=== PATIENT | female | born 1965 | race Caucasian/White ===

== ENCOUNTER 2020-12-22 21:08 | Emergency (ER) | payer OTHER ==
[2020-12-22 22:12] LABS: BASOPHIL 0.4 % (0-2); EOSINOPHIL 1.3 % (0-5); HGB 14.1 g/dl (12.5-16.0); LYMPHOCYTE 17.5 % (15-48); MCH 28.5 pg (25.0-31.0); MCHC 33.6 g/dL (32.0-36.0); MCV 84.8 fL (78.0-100.0); MONOCYTE 5.1 % (0-12); MPV 10.7 fL (6.0-9.5); NEUTROPHIL 74.9 % (41-80); NRBC 0; PLT 308 K/uL (150-400); RBC 4.95 M/uL (4.20-5.40); RDW 13.3 % (11.5-14.0); WBC 15.8 K/uL (4.0-10.5)
[2020-12-22 22:32] LABS: ALBUMIN 2.9 g/dL (3.4-5.0); BILIRUBIN - TOTAL 0.2 mg/dL (0.2-1.0); BUN/CREAT RATIO (CALC) 12.3 RATIO; CREATININE 0.65 mg/dL (0.51-0.95); GLOBULIN (CALCULATION) 5.2 g/dL; POTASSIUM 3.7 mmol/L (3.5-5.1); TOTAL PROTEIN 8.1 g/dL (6.4-8.2)
[2020-12-22 22:42] LABS: LACTIC ACID 1.4 mmol/L (0.4-1.9)
[2020-12-23] MEDS ORDERED: ONDANSETRON ODT4 MG SL (01:00)
[2020-12-23] MEDS ORDERED: PEPCID AC20 MG PO (01:00)
[2020-12-23] MEDS ORDERED: NORCO 5-325 TA1 EACH PO (01:00)
== END 2020-12-23 01:15 | disposition home or self-care (01) ==
LOC: FER 21:08
PROVIDERS: Emergency Medicine Emergency Medical Services
DX: K85.00 Idiopathic acute pancreatitis without necrosis or infection (principal); F17.200 Nicotine dependence, unspecified, uncomplicated; Z90.49 Acquired absence of other specified parts of digestive tract; Z88.2 Allergy status to sulfonamides
CPT/HCPCS: 36415; 71275; 80053; 83605; 83690; 84484; 85025; 85379; 93005; J1170; J1885; J2405; J2800; J7030; J7050; Q9967

== ENCOUNTER 2020-12-28 14:10 | Inpatient (IN) | payer OTHER ==
[~2020-12-28] VITALS: Ht 165.1 cm; Wt 113.1 kg
[~2020-12-28 14:10] MED LIST: NORCO 5-325 TA1 EACH PO; ONDANSETRON ODT4 MG SL; PEPCID AC20 MG PO
[2020-12-28 15:28] LABS: BASOPHIL 0.3 % (0-2); EOSINOPHIL 1.1 % (0-5); HCT 43.8 % (37.0-47.0); LYMPHOCYTE 11.7 % (15-48); MCV 87.6 fL (78.0-100.0); MONOCYTE 4.2 % (0-12); NEUTROPHIL 82.1 % (41-80); NRBC 0; PLT 354 K/uL (150-400); RDW 14.1 % (11.5-14.0); WBC 18.4 K/uL (4.0-10.5)
[2020-12-28 15:39] LABS: ALBUMIN 3.1 g/dL (3.4-5.0); BILIRUBIN - TOTAL 0.3 mg/dL (0.2-1.0); BUN/CREAT RATIO (CALC) 9.2 RATIO; CREATININE 0.76 mg/dL (0.51-0.95); TOTAL PROTEIN 9.1 g/dL (6.4-8.2)
[2020-12-28 17:32] LABS: LACTIC ACID 0.8 mmol/L (0.4-1.9)
[2020-12-28 17:50] LABS: BILIRUBIN NEGATIVE (NEGATIVE); BLOOD NEGATIVE Ery/uL (NEGATIVE); CLARITY CLEAR (CLEAR); COLOR YELLOW (YELLOW); GLUCOSE (U) NORMAL (NORMAL); LEUKOCYTES NEGATIVE Leu/uL (NEGATIVE); NITRITE NEGATIVE (NEGATIVE); PROTEIN NEGATIVE (NEGATIVE); SPECIFIC GRAVITY 1.015 (1.001-1.030); UROBILINOGEN 0.2 mg/dL (0.2-1.0); pH 7.5 (5.0-9.0)
[2020-12-29 04:05] LABS: BASOPHIL 0.2 % (0-2); EOSINOPHIL 0.8 % (0-5); HCT 41.1 % (37.0-47.0); HGB 12.9 g/dl (12.5-16.0); LYMPHOCYTE 10.3 % (15-48); MCH 27.5 pg (25.0-31.0); MCHC 31.4 g/dL (32.0-36.0); MCV 87.6 fL (78.0-100.0); MPV 10.7 fL (6.0-9.5); NEUTROPHIL 84.2 % (41-80); NRBC 0; PLT 327 K/uL (150-400); RBC 4.69 M/uL (4.20-5.40); WBC 18.5 K/uL (4.0-10.5)
[2020-12-29 04:27] LABS: ALBUMIN 2.7 g/dL (3.4-5.0); BILIRUBIN - TOTAL 0.5 mg/dL (0.2-1.0); BUN/CREAT RATIO (CALC) 6.9 RATIO; CREATININE 0.72 mg/dL (0.51-0.95); GLOBULIN (CALCULATION) 5.3 g/dL; POTASSIUM 4.2 mmol/L (3.5-5.1)
[2020-12-30 05:54] LABS: BASOPHIL 0.2 % (0-2); EOSINOPHIL 1.5 % (0-5); HCT 42.1 % (37.0-47.0); HGB 13.3 g/dl (12.5-16.0); MCH 27.8 pg (25.0-31.0); MCHC 31.6 g/dL (32.0-36.0); MCV 87.9 fL (78.0-100.0); MONOCYTE 5.1 % (0-12); MPV 10.4 fL (6.0-9.5); NEUTROPHIL 77.7 % (41-80); NRBC 0; PLT 326 K/uL (150-400); RBC 4.79 M/uL (4.20-5.40); RDW 13.8 % (11.5-14.0); WBC 12.3 K/uL (4.0-10.5)
[2020-12-30 06:15] LABS: ALBUMIN 2.8 g/dL (3.4-5.0); BILIRUBIN - TOTAL 0.5 mg/dL (0.2-1.0); BUN/CREAT RATIO (CALC) 8.8 RATIO; CREATININE 0.68 mg/dL (0.51-0.95); GLOBULIN (CALCULATION) 5.9 g/dL; MAGNESIUM 1.8 mg/dL (1.8-2.4); POTASSIUM 3.7 mmol/L (3.5-5.1); TOTAL PROTEIN 8.7 g/dL (6.4-8.2)
[2020-12-31 06:08] LABS: BASOPHIL 0.3 % (0-2); EOSINOPHIL 1.2 % (0-5); HCT 45.6 % (37.0-47.0); HGB 14.2 g/dl (12.5-16.0); MCH 27.7 pg (25.0-31.0); MCHC 31.1 g/dL (32.0-36.0); MCV 89.1 fL (78.0-100.0); MONOCYTE 5.4 % (0-12); MPV 10.8 fL (6.0-9.5); NEUTROPHIL 74.6 % (41-80); NRBC 0; PLT 371 K/uL (150-400); RBC 5.12 M/uL (4.20-5.40); RDW 13.9 % (11.5-14.0); WBC 10.5 K/uL (4.0-10.5)
[2020-12-31 06:31] LABS: ALBUMIN 2.9 g/dL (3.4-5.0); BILIRUBIN - TOTAL 0.3 mg/dL (0.2-1.0); BUN/CREAT RATIO (CALC) 9.6 RATIO; CREATININE 0.73 mg/dL (0.51-0.95); TOTAL PROTEIN 8.9 g/dL (6.4-8.2)
[2020-12-31] MEDS ORDERED: NORCO 5-325 TA1 EACH PO (10:52)
[2020-12-31] MEDS ORDERED: ONDANSETRON ODT4 MG PO (10:52)
[2020-12-31 16:10] LABS: IMMUNOGLOBULIN G, QN, SERUM 2283 mg/dL (586-1602)
== END 2020-12-31 12:24 | disposition home or self-care (01) | DRG 440 ==
LOC: FER 14:10 → FMS 17:37
PROVIDERS: Internal Medicine; ADMIT Allergy & Immunology Allergy
DX: K85.90 Acute pancreatitis without necrosis or infection, unspecified (principal); F17.210 Nicotine dependence, cigarettes, uncomplicated; Z20.822 Contact with and (suspected) exposure to COVID-19; Z88.2 Allergy status to sulfonamides; Z88.1 Allergy status to other antibiotic agents; Z90.49 Acquired absence of other specified parts of digestive tract; Z83.3 Family history of diabetes mellitus; Z82.49 Family history of ischemic heart disease and other diseases of the circulatory system; Z98.890 Other specified postprocedural states
CPT/HCPCS: 36415; 71045; 74181; 80053; 80061; 81003; 82784; 82787; 83036; 83605; 83690; 83735; 84484; 85025; 86301; 93005; 94010; G0480; J1170; J1885; J2270; J2310; J2405; J2543; J2550; J2765; J7030; J7120; U0002